=== PATIENT | female | born 1955 | race Caucasian/White ===

== ENCOUNTER 2016-10-05 08:10 | Emergency (ER) | payer BC ==
[2016-10-05 08:27] VITALS: TEMP 99
[2016-10-05] MEDS ORDERED: LIDOCAINE 1% 10 ML VIAL INJ ONE (08:33)
[2016-10-05] MEDS ORDERED: ONDANSETRON ODT 8 MG TAB SL ONE (08:33)
--- NOTE | 2016-10-05 08:41 | ED.PDOC ---
History of Present Illness - General Chief Complaint: Dental/Mouth Stated Complaint: right lower jaw discomfort Time Seen by Provider: 10/05/16 08:16 Source: patient, RN notes reviewed, Vital Signs reviewed Exam Limitations: no limitations - History of Present Illness Initial Comments: R lower dental abscess. Symptoms started on night and have gotten progressively worse. Now her R lower jaw is quite swollen Timing/Duration: getting worse - over past3 days Improving Factors: nothing Worsening Factors: eating, movement, other - touching Associated Symptoms: denies symptoms Allergies/Adverse Reactions: Allergies NO KNOWN ALLERGY Allergy (Verified 10/05/16 08:26) Home Medications: Ambulatory Orders Acetamin W/Cod #3 Tab [Tylenol w/CODEINE #3] 2 ea PO Q4HR PRN #30 tab 10/05/16 Bp Med PO DAILY 10/05/16 Ondansetron [Zofran Odt] 4 mg PO Q4HR PRN #20 tab 10/05/16 Synthroid 10/05/16 Review of Systems - Review of Systems Constitutional: States: no symptoms reported EENTM: States: see HPI, mouth pain, mouth swelling Respiratory: States: no symptoms reported Cardiology: States: no symptoms reported Gastrointestinal/Abdominal: States: nausea. Denies: abdominal pain, vomiting Musculoskeletal: States: no symptoms reported Skin: States: no symptoms reported Neurological: States: no symptoms reported. Denies: headache Past Medical History (General) - Patient Medical History Hx Stroke: No Hx Asthma: Yes Hx Congestive Heart Failure: No Hx Hypertension: Yes Hx Thyroid Disease: Yes Hx Diabetes: No Hx MRSA: No - Vaccination History Hx Influenza Vaccination: Yes - 2015 Hx Pneumococcal Vaccination: No - Social History Hx Tobacco Use: No - Female History Patient is a Female of Child Bearing Age (10 -59 yrs old): No Family Medical History - Family History Mother Living Status: Hx Family Hypertension: Yes Hx Family Cancer: Yes - breast Physical Exam - Physical Exam General Appearance: Alert, No apparent distress, Well Developed, Well Groomed, Well Hydrated, Well Nourished Eye Exam: bilateral normal Ears, Nose, Throat: other - R lower gum - abscess between jaw and cheek, tender to touch, fluctuant Neck: full range of motion, supple, lymphadenopathy (R), other - Tender just under R jaw Respiratory: no respiratory distress, no accessory muscle use Extremity: normal range of motion, non-tender, normal inspection Neurologic: no motor/sensory deficits, alert, normal mood/affect, oriented x 3 Skin Exam: normal color, warm/dry Comments: Vital Signs - 24 hr 10/05/16 08:19 Temperature 99.0 F Pulse Rate [ 80 Right Radial] Respiratory 20 Rate Blood Pressure 152/74 [Right Arm] O2 Sat by Pulse 97 Oximetry Progress - Progress Progress: 10/05/16 08:57 Will give first dose of Clindamycin IV along with some Dilaudid for pain. 10/05/16 10:15 IV antibiotic done. She is feeling better but jaw and head are throbbing. Procedures - Incision and Drainage #1 Site: Right, lower gum Procedure and Prep: pus drained Blade Size: 18 guage needle Procedure Comments: Gum injected with 1cc of Lidocaine then 1.5cc of pus removed. Patient tolerated well. Departure - Departure Clinical Impression: Abscess, dental Time of Disposition: 10:16 Disposition: Discharge to Home or Self Care Condition: Good Departure Forms: ED Discharge - Pt. Copy, Patient Portal Self Enrollment Instructions: Tooth Abscess Diet: resume usual diet Activity: increase activity as tolerated Prescriptions: Acetamin W/Cod #3 Tab [Tylenol w/CODEINE #3] 2 ea PO Q4HR PRN #30 tab PRN Reason: Moderate To Severe Pain Ondansetron [Zofran Odt] 4 mg PO Q4HR PRN #20 tab PRN Reason: Nausea/Vomiting Home Medications: Ambulatory Orders Acetamin W/Cod #3 Tab [Tylenol w/CODEINE #3] 2 ea PO Q4HR PRN #30 tab 10/05/16 Bp Med PO DAILY 10/05/16 Ondansetron [Zofran Odt] 4 mg PO Q4HR PRN #20 tab 10/05/16 Synthroid 10/05/16 Additional Instructions: Swish with warm salt water at least 5X/day OTC Ibuprofen 600mg every 6 hours.
[2016-10-05] MEDS ORDERED: HYDROmorphone HCL INJ 2 MG/ML VIAL IV ONE (08:49)
[2016-10-05] MEDS ORDERED: CLINDAMYCIN IV 600MG 600 MG in PREMIX BAG 1 BAG IVPB ONE (08:49)
[2016-10-05] MEDS ORDERED: CLINDAMYCIN IV 600MG 50 ML IVPB ONE (08:52)
[2016-10-05] MEDS ORDERED: HYDROCOD/APAP 10/325 (ER DISP) # 3 tablets PO ONE (10:20)
[2016-10-05 10:34] VITALS: BP 165/88; O2SAT 94
== END 2016-10-05 10:23 | disposition home or self-care (01) ==
LOC: ER 08:10
DX: K04.7 Periapical abscess without sinus (principal); I10 Essential (primary) hypertension; E07.9 Disorder of thyroid, unspecified; J45.909 Unspecified asthma, uncomplicated
CPT/HCPCS: J1170; J3490